=== PATIENT | male | born 1965 | race African-American/Black ===

== ENCOUNTER 2017-09-02 18:48 | Inpatient (IN) ==
[2017-09-02] MEDS ORDERED: KETOROLAC 60 MG/2 ML VIAL IM STA (19:29)
[2017-09-02] MEDS ORDERED: DEXAMETHASONE 10 MG/1 ML VIAL IM STA (19:29)
[2017-09-02] MEDS ORDERED: KETOROLAC 60 MG/2 ML VIAL IM ONE (19:41)
[2017-09-02] MEDS ORDERED: DEXAMETHASONE 10 MG/1 ML VIAL ONE (19:42)
[2017-09-02 21:20] LABS: Basophils % 0.2 % (0.0-0.8); Hematocrit 35.9 VOL% (42.0-52.0); Hemoglobin 12.4 GM/DL (14.0-18.0); Immature Granulocytes % 0.4 %; Immature Granulocytes Absolute 0.04 #; Lymphocytes # 0.7 10*3/uL (1.4-4.0); Lymphocytes % 7.2 % (21.2-54.2); Mean Corpuscular HGB Conc 34.5 GM/DL (32-36); Mean Corpuscular Hemoglobin 32 PG (27-34); Mean Corpuscular Volume 92.5 FL (87-102); Mean Platelet Volume 9.7 FL (9.6-12.0); Monocytes # 0.5 10*3/uL (0.11-0.8); Monocytes % 4.9 % (1.7-12.7); Neutrophils # 8.2 10*3/uL (1.4-7.4); Neutrophils % 87.3 % (38.7-73.9); Platelet Count 210 T/CUMM (130-400); Red Blood Count 3.88 MC/CUMM (3.8-5.5); Red Cell Distribution Width 12.7 % (9.3-17.3); White Blood Count 9.4 T/CUMM (4-12)
[2017-09-02 21:29] LABS: PT Patient Result 10.8 SECS
[2017-09-02 21:52] LABS: Albumin 4.6 G/DL (3.4-5.0); Bilirubin,Total 1.7 MG/DL (0.2-1.0); Calcium 9.3 MG/DL (8.5-10.1); Osmolality,Calculated 268.1 MOS/KG (273-304); Total Protein 8.1 G/DL (6.4-8.3)
[2017-09-02 22:25] LABS: CKMB % 0.3 %; Troponin I Only < 0.015 NG/ML (0.00-0.045)
[2017-09-02] MEDS ORDERED: SODIUM CHLORIDE 0.9% 1,000 ML IV STA (22:40)
[2017-09-03] MEDS ORDERED: ONDANSETRON 4 MG/2 ML VIAL IV PRN (01:07)
[2017-09-03 05:29] LABS: Hematocrit 33.7 VOL% (42.0-52.0); Hemoglobin 11.8 GM/DL (14.0-18.0); Immature Granulocytes % 0.4 %; Immature Granulocytes Absolute 0.03 #; Lymphocytes # 0.5 10*3/uL (1.4-4.0); Mean Corpuscular Hemoglobin 32 PG (27-34); Mean Corpuscular Volume 91.1 FL (87-102); Mean Platelet Volume 10.1 FL (9.6-12.0); Monocytes # 0.2 10*3/uL (0.11-0.8); Monocytes % 2.5 % (1.7-12.7); Neutrophils # 7.4 10*3/uL (1.4-7.4); Neutrophils % 91.1 % (38.7-73.9); Platelet Count 221 T/CUMM (130-400); Red Cell Distribution Width 12.7 % (9.3-17.3); White Blood Count 8.2 T/CUMM (4-12)
[2017-09-03 05:52] LABS: Hypochromasia Slight; Lymphocytes 7 % (20-55); Metamyelocytes 1 %; Microcytosis 1+; Segmented Neutrophils 90 % (50-85); Total Cells Counted 100
[2017-09-03 05:53] LABS: Platelet Estimate Normal
[2017-09-03 05:57] LABS: Calcium 8.4 MG/DL (8.5-10.1); Osmolality,Calculated 267.2 MOS/KG (273-304); Potassium 4.2 MMOL/L (3.5-5.1)
[2017-09-03] MEDS: PANTOPRAZOLE 40 MG TABLET PO SCH (08:56)
[2017-09-03] MEDS: FONDAPARINUX 2.5 MG/0.5 ML SYRINGE SUBCUT SCH (14:39)
[2017-09-03 16:34] LABS: Calcium 8.6 MG/DL (8.5-10.1); Osmolality,Calculated 267.2 MOS/KG (273-304); Potassium 3.9 MMOL/L (3.5-5.1)
[2017-09-03] MEDS: SODIUM CHLORIDE 0.9% 1,000 ML IV SCH ×2 (16:52→23:58)
[2017-09-03] MEDS: MORPHINE 2 MG/1 ML SYRINGE IV PRN (21:09)
[2017-09-04] MEDS: MORPHINE 2 MG/1 ML SYRINGE IV PRN ×2 (02:05→06:21)
[2017-09-04 07:34] LABS: Hepatitis A Ab IgM Quant 0.09 Index; Hepatitis A Ab IgM Result Negative (Negative); Hepatitis B Surface Ag Quant < 0.10 Index; Hepatitis B Surface Ag Result Negative (Negative); Hepatitis C Virus Ab Result Negative (Negative)
[2017-09-04 08:35] LABS: Bilirubin,Total 1.3 MG/DL (0.2-1.0); Calcium 8.5 MG/DL (8.5-10.1); Potassium 3.7 MMOL/L (3.5-5.1); Total Protein 7.7 G/DL (6.4-8.3)
[2017-09-04 09:04] LABS: Hepatitis B Core IgM Quant 1.33 Index
[2017-09-04 09:10] LABS: Hepatitis B Core IgM Result Positive (Negative)
[2017-09-04] MEDS: SODIUM CHLORIDE 0.9% 1,000 ML IV SCH ×2 (10:46→10:47)
[2017-09-04] MEDS: FONDAPARINUX 2.5 MG/0.5 ML SYRINGE SUBCUT SCH (10:55)
[2017-09-04] MEDS: PANTOPRAZOLE 40 MG TABLET PO SCH (10:55)
[2017-09-04 11:34] VITALS: BP 139/85
== END 2017-09-04 15:35 | disposition home or self-care (01) | DRG 563 ==
LOC: N.ED 18:48 → N.EDINP 23:57 → N.3E 09-03 00:48
PROVIDERS: ADMIT Surgery; ATTEND Surgery